=== PATIENT | female | born 1960 | race Caucasian/White ===

== ENCOUNTER 2018-11-07 10:56 | Day surgery (SDC) | payer BC ==
[~2018-11-07] VITALS: Ht 165.1 cm; Wt 71.4 kg
[2018-11-07] MEDS ORDERED: ALPR-624 PO (11:41)
[2018-11-07] MEDS ORDERED: PROC10TA10 PO (11:41)
[2018-11-07] MEDS ORDERED: CYAN-19 PO (11:42)
[2018-11-07] MEDS ORDERED: ALBU8.5H8 INH (11:44)
[2018-11-07] MEDS ORDERED: MULT1TAB74 PO (11:45)
[2018-11-07] MEDS ORDERED: CALC500T11 PO (11:45)
[2018-11-07] MEDS ORDERED: CHOL10002 PO (11:46)
[2018-11-07] MEDS ORDERED: ONDA8TAB6 PO (11:47)
[2018-11-07] MEDS ORDERED: SIME125C PO (11:48)
[2018-11-07] MEDS ORDERED: HYDR-4353 PO (11:49)
[2018-11-07] MEDS ORDERED: RANI150T8 PO (11:50)
[2018-11-07] MEDS ORDERED: NAPR220T67 PO (11:51)
[2018-11-07 12:00] VITALS: BP 139/86
[2018-11-07] MEDS ORDERED: LIDOcaine 1%/PF 5ML 10 MG/ML VIAL SQ ONE (13:25)
[2018-11-07] MEDS ORDERED: fentaNYL/PF 50MCG/1 ML 2ML syringe IV PRN (13:25)
[2018-11-07] MEDS ORDERED: midazolam 2 mg/2 ml injection IV PRN (13:25)
[2018-11-07] MEDS ORDERED: LIDOcaine 1%/PF 5ML 10 MG/ML VIAL ONE ×2 (13:26→13:56)
[2018-11-07] MEDS ORDERED: LIDOcaine/PRILOcaine 5gm cream TP ONE (13:48)
[2018-11-07 14:20] VITALS: BP 130/71
[2018-11-07 14:30] VITALS: BP 139/88
== END 2018-11-07 14:40 | disposition home or self-care (01) ==
LOC: SSTAY O 10:56
PROVIDERS: ATTEND Radiology Vascular & Interventional Radiology
DX: Z45.2 Encounter for adjustment and management of vascular access device (principal); C34.90 Malignant neoplasm of unspecified part of unspecified bronchus or lung; Z88.0 Allergy status to penicillin; Z88.6 Allergy status to analgesic agent; Z79.899 Other long term (current) drug therapy; Z87.891 Personal history of nicotine dependence
CPT/HCPCS: 36590; J2001; A9270